=== PATIENT | male | born 1955 | race Hispanic/Latino ===

== ENCOUNTER → 2018-04-30 | Day surgery (SDC) | payer OTHER, MEDICARE ==
[~2018-04-30] VITALS: Ht 167.6 cm; Wt 90.7 kg
--- NOTE | 2018-04-30 13:29 | Operative Report ---
Operative/Inv Procedure Report Surgery Date: 04/30/18 Name of Procedure: Cystolithalopaxy, TURP Pre-Operative Diagnosis: BPH with bladder stones Post-Operative Diagnosis: same Estimated Blood Loss: less than 50ml Surgeon/Operations Professional: Alisia Roblero MD Anesthesia: laryngeal mask airway Drains: 22Fr coude fox 3 way catheter Specimens: prostate chips and bladder stones Complications: none Condition: stable Operative Indication: BPH with bladder stones Operative/Procedure Note Note: 62yo male with MR who has issues with urinary frequency q1hr and wakes 2x per night. His sister is not able to get him to take his tamsulosin consistently. He admits to decreased FOS, straining and sensation of incomplete emptying. He has UUI and no CHARLES. He has no hx of kidney stones, hematuria or UTIS/prostatitis. His sister was given the risks, benefits and alternatives in the office and the holding area. This included possible injury to the rectum with the ureteral orifices. The anatomical boundaries of the resection was also discussed for example internal and external sphincters. All questions were answered for the patient and his . Consent was signed after reviewing all the above. Patient was taken to the operating room placed on the operating table in the supine position. Timeout was performed. IV antibiotics was given. LMA anesthesia was begun. Patient was then placed in the dorsolithotomy position and prepped and draped in the standard sterile fashion. Cystoscopy was performed and the bladder was globally inspected. Of note, the patient had a very high riding bladder neck and it was difficult placing the scope into his bladder. There were numerous yellow bladder stones with only a few too large to be Elliked out so it was fragmented with laser fiber 325 micron size. The resectoscope was then placed. The ureteral orifices were easily identified on the trigone and the resectoscope was brought to the verumontanum. The obstructive nature of the prostate was the lateral lobes. The resection was begun at 3:00 on the patient's left side and carried down to 6:00. This was then carried from 3-12. Point coagulated was performed throughout the procedure. The right side was then addressed from 9 to 6:00 followed by 9 to 12 :00. Point coagulation was performed throughout the procedure. Prostate chips were removed with the Serene evacuator periodically as well. When the bladder neck was viewed from the verumontanum there was a nice open channel and the resection was completed. Cautery settings of the bipolar resectoscope was then used to coagulate any remaining bleeders. All prostate chips were removed via the Ellik evacuator as well as the bladder stones and a few stones were seen remaining. The ureteral orifices were intact. When the resectoscope was removed , it was noted that the white part of the sheath was broken and the loop was also missing. The cystoscopy was placed and the above parts were attempted to be removed but they were too small and the bladder was bloody. A 22 Polish three-way Fox catheter was placed with some difficulty and was hooked up to continuous bladder irrigation and a large Fox bag. Patient tolerated procedure well prostate chips were sent to pathology. Patient was transferred to the recovery room stable condition. THe patient's sister was informed of the foreign bodies that remained in the bladder. Findings: very high riding prostate/bladder neck broken resectoscope sheath and loop at end of resection. Discharge Disposition: PACU
== END ==
LOC: STS 01:33
DX: N40.1 Benign prostatic hyperplasia with lower urinary tract symptoms (principal); R35.0 Frequency of micturition; R39.14 Feeling of incomplete bladder emptying; R39.16 Straining to void; N21.0 Calculus in bladder; I10 Essential (primary) hypertension; F70 Mild intellectual disabilities
CPT/HCPCS: J0131; J0690; J2250; J2405